=== PATIENT | male | born 1950 | race Caucasian/White ===

== ENCOUNTER 2018-12-01 11:08 | Emergency (ER) | payer MEDICARE, BC ==
[2018-12-01] MEDS ORDERED: Sodium Chloride 0.9% 10 ML Syringe FLUSH PRN (11:13)
--- NOTE | 2018-12-01 11:13 | EDM.PDOC ---
ED HPI GENERAL MEDICAL PROBLEM - General Chief Complaint: General Stated Complaint: SOB Time Seen by Provider: 12/01/18 11:10 Source of Information: Reports: Patient, Residential Records, Old Records ([facility] EMR. No paper hospital chart available.) History Limitations: Reports: No Limitations - History of Present Illness INITIAL COMMENTS - FREE TEXT/NARRATIVE: The patient was brought to the emergency room via transport vehicle from [facility] in [place] for evaluation of decompensated IDDM with Accu- Chek of greater than 600 mg percent prior to transfer to this facility. His Accu -Cheks have been under relatively poor control recently, including Accu-Cheks mostly in the 300s during the last several days by his history. He has not had anything to eat this morning with 60 units of Lantus and 35 units of NovoLog given this morning for his decompensated blood sugars. The patient denies any chest pain/pressure, heart flutter, dizziness, orthostasis, orthopnea, diaphoresis, paresthesias, recent decreased exercise tolerance, or any other anginal-type symptoms, however his overall activity level is extremely low secondary to his chronic CHF. He has noticed some weight gain and increased dependent edema during the last several days. No recent history of abdominal pain, heartburn, nausea, diarrhea, melena, gross hematochezia, or any food intolerance, including fatty foods, etc. with 2 normal bowel movements this morning. He denies any gross hematuria, colic, or other UTI symptoms. The patient also denies any recent fever, cough, wheezing, etc., however some increased dyspnea during the last couple of days. He denies any pain or discomfort. Onset: Unknown/Unsure Onset Date: 12/01/18 Onset Time: 11:00 Duration: Getting Worse Location: Reports: Other (No pain) Quality: Reports: Same as Previous Episode Improves with: Reports: None, Medication Context: Reports: Other (As above). Denies: Sick Contact, Trauma Associated Symptoms: Reports: Shortness of Breath, Weakness (Stable chronic generalized). Denies: Confusion, Chest Pain, Cough, cough w sputum, Diaphoresis , Fever/Chills, Loss of Appetite, Malaise, Nausea/Vomiting, Syncope Treatments HUMAN RESOURCES SERVICES SPECIALIST: Reports: Insulin (As above) - Related Data Allergies Allergy/AdvReac Type Severity Reaction Status Date / Time No Known Allergies Allergy Verified 12/01/18 11:34 Home Meds: Home Meds Acetaminophen 650 mg PO Q4HR PRN 12/01/18 [History] Acetaminophen [Acetaminophen Extra Strength] 1,000 mg PO ASDIRECTED PRN [History] Albuterol Sulfate [Proair Respiclick] 2 puff INH Q4HR PRN 12/01/18 [History] Amiodarone [Cordarone] 200 mg PO DAILY 12/01/18 [History] Amoxicillin 2,000 mg PO ASDIRECTED PRN 12/01/18 [History] Ascorbic Acid [Vitamin C] 1,000 mg PO DAILY 12/01/18 [History] Benzonatate 200 mg PO TID PRN 12/01/18 [History] Calcium Carbonate/Vitamin D3 [Calcium 600 + Vit D 400 Softgl] 1 tab PO DAILY [History] Cholecalciferol (Vitamin D3) [Vitamin D3] 2,000 unit PO DAILY 12/01/18 [History] Dextrose [Glucose] 4 gm PO ASDIRECTED PRN 12/01/18 [History] Docusate Sodium [Colace] 100 mg PO BID 12/01/18 [History] Eucalyptus/Menthol [Cough Drops] 1 lozenge PO Q2HR PRN 12/01/18 [History] Exenatide Microspheres [Bydureon Pen] 2 mg SQ WEEKLY 12/01/18 [History] Ferrous Sulfate 325 mg PO BID 12/01/18 [History] Finasteride 5 mg PO DAILY 12/01/18 [History] Fluticasone Propionate [Flonase Allergy Relief] 50 mcg NASBOTH 199912/01/18 [ History] Folic Acid 1 mg PO DAILY 12/01/18 [History] Gabapentin [Neurontin] 600 mg PO TID 12/01/18 [History] Insulin Aspart [NovoLOG] 25 unit SQ TID 12/01/18 [History] Insulin Glarg,Human.Rec.Analog [Lantus] 60 unit SUBCUT DAILY 12/01/18 [History] Insulin Glarg,Human.Rec.Analog [Lantus] 64 units SUBCUT 199912/01/18 [History] Isosorbide Mononitrate [Isosorbide Mononitrate ER] 120 mg PO DAILY 12/01/18 [ History] Levothyroxine Sodium [Synthroid] 75 mcg PO DAILY 12/01/18 [History] Melatonin 5 mg PO BEDTIME 12/01/18 [History] Multivitamin [Multi-Vitamin Daily] 1 tab PO DAILY 12/01/18 [History] Pantoprazole [ProTONIX] 40 mg PO BID 12/01/18 [History] Potassium Chloride 60 meq PO TID 12/01/18 [History] Psyllium Husk [Metamucil] 2 tsp PO DAILY 12/01/18 [History] Simvastatin [Zocor] 40 mg PO BEDTIME 12/01/18 [History] Spironolactone [Aldactone] 25 mg PO BID 12/01/18 [History] Torsemide 80 mg PO TID 12/01/18 [History] Venlafaxine HCl [Venlafaxine ER] 75 mg PO DAILY 12/01/18 [History] Venlafaxine HCl [Venlafaxine ER] 150 mg PO DAILY 12/01/18 [History] Vitamin B Complex 1 cap PO DAILY 12/01/18 [History] Warfarin Sodium [Coumadin] 3 mg PO ASDIRECTED 12/01/18 [History] Warfarin [Coumadin] 2.5 mg PO ASDIRECTED 12/01/18 [History] clonazePAM [Clonazepam] 1 mg PO DAILY@199912/01/18 [History] hydrALAZINE HCl [Hydralazine HCl] 100 mg PO TID 12/01/18 [History] metOLazone [Metolazone] 2.5 mg PO ASDIRECTED 12/01/18 [History] rOPINIRole [Requip] 1 mg PO QID 12/01/18 [History] Past Medical History HEENT History: Reports: Cataract, Glaucoma, Hard of Hearing, Impaired Vision, Other (See Below). Denies: Allergic Rhinitis, Otitis Media, Retinal Detachment Other HEENT History: Bilateral presbycusis with bilateral hearing aid therapy. Patient wears glasses. No diabetic retinopathy by patient history. Cardiovascular History: Reports: Automatic Implantable Cardioverter Defibrillators, Blood Clots/VTE/DVT, CAD, Cardiomyopathy, Heart Failure, High Cholesterol, Hypertension, KS, Pacemaker, Other (See Below). Denies: Afib, Aneurysm, Arrhythmia Other Cardiovascular History: Coronary artery disease with history of multiple previous nonsymptomatic MIs since his 50s with no previous PTCA/stents or bypass surgery. Chronic CHF which does require LVAD. In addition note history of pacemaker/AICD. DVT of the foot/leg at time of LVAD placement in 2008 with repeat DVT of the leg with history of secondary PE at placement of AICD in early November 2018. Recurrent syncope secondary to dehydration from diuresis therapy. History of hypertension with current chronic hypotension secondary to his heart disease/cardiomyopathy. Mixed hyperlipidemia. Respiratory History: Reports: Bronchitis, Recurrent, COPD, Intubation, Previous , PE, Pneumonia, Recurrent, Sleep Apnea, SOB, Other (See Below). Denies: Asthma , Intubation, Difficult, Pneumothorax, Pulmonary Fibrosis, TB Other Respiratory History: He does not use a CPAP. Gastrointestinal History: Reports: Chronic Constipation, Colon Polyp, GERD, Other (See Below). Denies: Celiac Disease, Cholelithiasis, Chronic Diarrhea, Diverticulosis, Fecal Incontinence, Gastritis, GI Bleed, Hepatitis, Hiatal Hernia, Inflammatory Bowel Disease, Irritable Bowel Syndrome, Jaundice, Pancreatitis, PUD Other Gastrointestinal History: Excision of 3 unknown type of polyps in the early . Genitourinary History: Reports: BPH, Chronic Renal Insuffiency, Diabetic Nephropathy, Prostate Disorder, Retention, Urinary, Other (See Below). Denies: Acute Renal Failure, Renal Calculus, STD, Urinary Incontinence, UTI, Recurrent Other Genitourinary History: Stage IV chronic renal insufficiency/diabetic nephropathy. Musculoskeletal History: Reports: Arthritis, Back Pain, Chronic, Fracture, Gout , Neck Pain, Chronic, Osteoarthritis, Other (See Below). Denies: RA, SLE Other Musculoskeletal History: Midshaft tibial fibular fracture in the early 1999sside unknown with no surgery Neurological History: Reports: Neuropathy, Diabetic, Neuropathy, Peripheral. Denies: Alzheimers Disease, Cerebral Aneurysms, Concussion, CVA, Headaches, Chronic, Head Trauma, Migraines, MS, Parkinson's, Seizure, TIA, Vertigo Psychiatric History: Reports: Addiction, Anxiety, Depression, Other (See Below) . Denies: Abuse, Victim of, ADD, ADHD, Psych Hospitalization(s), PTSD, Suicide Attempt, Suicidal Ideation Other Psychiatric History: Alcohol abuse for about 23 years as below. Endocrine/Metabolic History: Reports: Diabetes, Type II, Hypothyroidism, IDDM, Obesity/BMI 30+. Denies: Diabetes Mellitus, Type 3c, Osteopenia, Osteoporosis Hematologic History: Reports: Anemia, Blood Transfusion(s), Iron Deficiency Immunologic History: Reports: None. Denies: AIDS, HIV, SLE Oncologic (Cancer) History: Reports: Prostate, Other (See Below). Denies: Basal Cell Carcinoma, Colon, Hodgkin's Lymphoma, Leukemia, Lymphoma, Non-Hodgkin 's Lymphoma, Squamous Cell Carcinoma Other Oncologic History: Radiation treatment for prostate cancer 2008 with no TURP or prostatectomy for Dermatologic History: Reports: Venous Stasis Dermatitis. Denies: Eczema, Psoriasis - Infectious Disease History Infectious Disease History: Reports: Chicken Pox (Uncertain), Measles, Mumps. Denies: C-Difficile, Meningitis, Mononucleosis, MRSA, Pertussis (Whooping Cough) , Rheumatic Fever, Rubella, Scarlet Fever, TB, VRE - Past Surgical History Head Surgeries/Procedures: Reports: None HEENT Surgical History: Reports: Cataract Surgery, Oral Surgery, Other (See Below). Denies: Adenoidectomy, Eye Surgery, Laser Surgery, LASIK, Myringotomy w Tube(s), Naso-Sinus Surgery, Tonsillectomy Other HEENT Surgeries/Procedures: Bilateral cataract surgery in about 2014. Cardiovascular Surgical History: Reports: AICD, Pacer, Percutaneous Transluminal Angioplasty, Other (See Below). Denies: Coronary Artery Bypass, Coronary Artery Stent, Varicose Other Cardiovascular Surgeries/Procedures: AICD/pacemaker placement 2 with last placement in early November 2014. LVAD 2 initially in 2008 and then in 2014. Respiratory Surgical History: Reports: None. Denies: Thoracentesis GI Surgical History: Reports: Appendectomy, Colonoscopy, EGD, Polypectomy, Other (See Below). Denies: Cholecystectomy, Hernia, Abdominal, Hernia, Inguinal , Hernia Repair/Other Other GI Surgeries/Procedures: Appendectomy at about age 8. Colonoscopy with concomitant polypectomy 3 in the early 1999s. Previous EGD? Male Surgical History: Reports: Circumcision, Prostate Biopsy. Denies: Prostatectomy, TURBT-Transurethral Resection of Bladder Tumor, TURP- Transurethral Resection of Prostate, Vasectomy Endocrine Surgical History: Reports: None. Denies: Thyroid Biopsy Neurological Surgical History: Reports: None. Denies: C-Spine, Discectomy, Laminectomy, Lumbar Spine, Sacral Spine, Scoliosis, Spinal Fusion, Vertebroplasty Musculoskeletal Surgical History: Reports: None. Denies: Arthroscopic Procedure , Carpal Tunnel, Ganglion Cyst, Joint Replacement, ORIF, Shoulder Surgery Oncologic Surgical History: Reports: Lumpectomy, Other (See Below) Other Oncologic Surgeries/Procedures: Apparent lumpectomy of prostate cancer with subsequent radiation therapy? Dermatological Surgical History: Reports: None Social & Family History - Family History Cardiac: Reports: CAD, [place], Other (See Below) Other Cardiac Family History: Father with unknown type of heart murmur requiring valve replacement. Mother with unknown type of heart disease. Endocrine/Metabolic: Reports: Diabetes, type II, IDDM, Other (See Below). Denies: Hypothyroidism Other Endocrine/Metabolic Family History: History with AODM. Mother with IDDM. - Tobacco Use Smoking Status *Q: Former Smoker Tobacco Use Within Last Twelve Months: No Years of Tobacco use: 39 Packs/Tins Daily: 3 Packs/Tins Daily Comment: 34 packs per day with patient smoking cigarettes between ages 14 and 53. Chewing Tobacco use in his early 50s. Used Tobacco, but Quit: Yes Smoking Cessation Information Provided To Patient: No Second Hand Smoke Exposure: No Second Hand Smoke Education Provided: No - Caffeine Use Caffeine Use: Reports: Coffee (1 cup per day), Soda (12 per day). Denies: Energy Drinks, Tea, Other - Alcohol Use Alcohol Use History: Yes Days Per Week of Alcohol Use: 0 Number of Drinks Per Day: 0 Total Drinks Per Week: 0 Total Drinks Per Week Comment: Previous history of probable alcohol abuse between ages 18 and 45 with no previous alcohol treatment - Recreational Drug Use Recreational Drug Use: No Drug Use in Last 12 Months: No Recreational Drug Type: Reports: Marijuana/Hashish (Experimental marijuana use at age 20 in the ). Denies: Amphetamines (Speed), Cocaine, Heroin, Inhalants (Glues, Solvents, Aerosols), LSD (Acid), Methamphetamine, Morphine, Oxycodone Recreational Drug Route: Reports: Inhaled - Sexual History Sexual History: Reports: None - Living Situation & Occupation Living situation: Reports: Extended Care Facility ([facility]) Occupation: Disabled (In his early 50s secondary to his heart disease.) ED ROS GENERAL - Review of Systems Review Of Systems: ROS reveals no pertinent complaints other than HPI. ED EXAM, GENERAL - Physical Exam Exam: See Below Exam Limited By: No Limitations General Appearance: Alert, WD/WN, No Apparent Distress Eye Exam: Bilateral Eye: EOMI, Normal Inspection (No nystagmus. Patient wearing glasses.), PERRL Ears: Normal External Exam, Normal Canal, Normal TMs, Hearing Loss (Mild to moderate presbycusis with patient not having his hearing aides). No: Hearing Grossly Normal Nose: Normal Inspection, Normal Mucosa, No Blood Throat/Mouth: Normal Lips, Normal Oropharynx, Normal Voice, No Airway Compromise. No: Normal Teeth (Multiple missing teeth), Dysphagia, Perioral Cyanosis Head: Atraumatic, Normocephalic. No: Facial Swelling, Facial Tenderness, Sinus Tenderness Neck: Normal Inspection, Supple, Non-Tender, Full Range of Motion. No: Lymphadenopathy (L), Lymphadenopathy (R), Thyromegaly Respiratory/Chest: No Respiratory Distress, No Accessory Muscle Use, Chest Non- Tender, Rales (Mild diffuse bilateral), Other (Tubes for LVAD device noted). No : Rhonchi, Wheezing, Pleural Rub, Retractions Cardiovascular: Normal Peripheral Pulses, Regular Rate, Rhythm, No Edema, No Gallop, No JVD, No Murmur, No Rub, Other (Extremely quiet heart sounds with exam somewhat compromised by LVAD sounds). No: Gallop/S3, Gallop/S4, Extra Beats, Friction Rub Peripheral Pulses: 0: Dorsalis Pedis (L), Dorsalis Pedis (R), 2+: Radial (L), Radial (R) GI/Abdominal: Normal Bowel Sounds, Soft, Non-Tender, No Organomegaly, No Distention, No Abnormal Bruit, No Mass, Pelvis Stable, Other (Obese. Multiple mild ecchymosis side secondary to insulin injections.). No: Guarding (Male) Exam: Deferred Rectal (Males) Exam: Deferred Back Exam: Normal Inspection, Full Range of Motion. No: CVA Tenderness (L), CVA Tenderness (R), Muscle Spasm Extremities: Normal Range of Motion, Non-Tender, Normal Capillary Refill, Pedal Edema (+1 bilateral pitting pedal/pretibial edema). No: No Pedal Edema, Karyn' s Sign Neurological: Alert, Oriented, CN II-XII Intact, Normal Cognition, Normal Gait, Normal Reflexes (Negative Babinski's), No Motor/Sensory Deficits Psychiatric: Normal Affect, Normal Mood Skin Exam: Warm, Dry, Intact, Normal Color, Ecchymosis (As above), Other ( Moderate venous stasis dermatitis of the anterior tibial regions bilaterally.). No: Diaphoretic, Lymphangitis, Wound/Incision Lymphatic: No Adenopathy EKG INTERPRETATION EKG Date: 12/01/18 Time: 12:14 Rhythm: Other (100% paced) Rate (Beats/Min): 80 Junction: Normal (Left cardiac axis) P-Wave: Absent (Paced rhythm) QRS: Wide (Secondary to paced rhythm) ST-T: Normal QT: Normal ME/PQ Interval: Paced rhythm Comparison: NA - No Prior EKG EKG Interpretation Comments: No acute ischemic changes with 100% paced rhythm Course - Vital Signs Last Recorded V/S: Last Vital Signs Temp 36.4 C 12/01/18 13:15 Pulse 80 12/01/18 15:16 Resp 16 12/01/18 15:16 BP 102/88 12/01/18 15:16 Pulse Ox 99 12/01/18 15:16 Vital Signs - 24 hr 12/01/18 12/01/18 12/01/18 11:13 13:15 13:47 Temperature [ 36.4 C Temporal] Pulse, 60 80 Peripheral [ Right Pulse Oximetry] Respiratory 18 20 Rate Blood Pressure 117/85 109/93 H [Left Upper Arm ] O2 Sat by Pulse 100 99 Oximetry O2 Sat by Pulse 100 Oximetry [ Nasal Cannula] 12/01/18 12/01/18 12/01/18 14:02 14:16 14:31 Temperature [ Temporal] Pulse, 80 89 81 Peripheral [ Right Pulse Oximetry] Respiratory 20 20 20 Rate Blood Pressure 97/76 102/89 114/78 [Left Upper Arm ] O2 Sat by Pulse 99 97 97 Oximetry O2 Sat by Pulse Oximetry [ Nasal Cannula] 12/01/18 12/01/18 12/01/18 14:48 15:01 15:16 Temperature [ Temporal] Pulse, 80 80 80 Peripheral [ Right Pulse Oximetry] Respiratory 14 12 16 Rate Blood Pressure 110/94 H 106/90 102/88 [Left Upper Arm ] O2 Sat by Pulse 99 98 99 Oximetry O2 Sat by Pulse Oximetry [ Nasal Cannula] - Orders/Labs/Meds Orders: Active Orders 24 hr Category Date Time Status Cardiac Monitoring [RC] CONTINUOUS Care 12/01/18 11:13 Active Communication Order [RC] ROUTINE Care 12/01/18 11:13 Active EKG Documentation Completion [RC] ASDIRECTED Care 12/01/18 12:03 Active Oxygen Therapy, ED [RC] CONTINUOUS Care 12/01/18 11:13 Active Peripheral IV Care [RC] . DIRECTED Care 12/01/18 11:14 Active Pulse Oximetry [RC] CONTINUOUS Care 12/01/18 11:13 Active Up With Assistance [RC] ASDIRECTED Care 12/01/18 11:13 Active Chest 1V Frontal [CR] Stat Exams 12/01/18 11:13 Taken CULTURE URINE [RM] Routine Lab 12/01/18 12:30 Received Obtain Past Medical Record [OM.PC] Stat Oth 12/01/18 11:13 Active Peripheral IV Insertion Adult [OM.PC] Stat Oth 12/01/18 11:13 Ordered Resuscitation Status Routine Resus Stat 12/01/18 11:13 Ordered Labs: Laboratory Tests 12/01/18 12/01/18 12/01/18 Range/Units 11:13 11:13 11:30 WBC 10.7 H (4.0-10.2) K/uL RBC 3.47 L (4.33-5.41) M/uL Hgb 12.2 L (13.1-16.8) g/dL Hct 38.3 L (39.0-49.0) % MCV 110.4 H (84.0-98.0) fL MCH 35.2 H (28.2-33.3) pg MCHC 31.9 (31.7-36.0) g/dL RDW 17.5 H (11.2-14.1) % Plt Count 141 L (150-350) K/uL Neut % (Auto) 85.8 H (45.0-80.0) % Lymph % (Auto) 5.3 L (10.0-50.0) % Valley % (Auto) 7.9 (2.0-14.0) % Eos % (Auto) 0.7 (0.0-5.0) % Baso % (Auto) 0.3 (0.0-2.0) % Neut # (Auto) 9.20 H (1.40-7.00) K/uL Lymph # (Auto) 0.57 (0.50-3.50) K/uL Valley # (Auto) 0.85 (0.00-1.00) K/uL Eos # (Auto) 0.07 (0.00-0.50) K/uL Baso # (Auto) 0.03 (0.00-0.20) K/uL PT (9.5-12.0) SEC INR APTT (21.0-31.3) SEC Sodium 133 L (136-145) mmol/L Potassium 5.5 H (3.5-5.1) mmol/L Chloride 95 L (98-107) mmol/L Carbon Dioxide 29.1 (21.0-32.0) mmol/L BUN 41 H (7-18) mg/dL Creatinine 2.15 H (0.51-1.17) mg/dL Est Cr Clr Drug Dosing TNP Estimated GFR (MDRD) 31 mL/min Glucose 386 H (74-106) mg/dL Lactic Acid 2.6 H (0.4-2.0) mmol/L Calcium 8.5 (8.5-10.1) mg/dL Magnesium 2.2 (1.8-2.4) mg/dL Total Bilirubin 0.9 (0.2-1.0) mg/dL AST 47 H (15-37) U/L ALT 26 (12-78) U/L Alkaline Phosphatase 72 (46-116) IU/L Creatine Kinase 131 (26-308) U/L Creatine Kinase Index 7.1 H (0.0-2.5) % CK-MB (CK-2) 9.30 H* (0.00-3.60) ng/mL Troponin I 1.306 H* (0.000-0.056) ng/mL NT-Pro-B Natriuret Pep 2124 H (0-125) pg/mL Total Protein 7.9 (6.4-8.2) g/dL Albumin 3.7 (3.4-5.0) g/dL TSH, Ultra Sensitive 3.970 H (0.358-3.740) mIU/mL Specimen Type Urine Color Urine Appearance Urine pH (5.0-9.0) Ur Specific Victoria (1.005-1.030) Urine Protein (NEGATIVE) mg/dL Urine Glucose (UA) (NEGATIVE) mg/dL Urine Ketones (NEGATIVE) mg/dL Urine Occult Blood (NEGATIVE) Urine Nitrite (NEGATIVE) Urine Bilirubin (NEGATIVE) Urine Urobilinogen (0.2-1.0) E.U./dL Ur Leukocyte Esterase (NEGATIVE) Urine RBC /HPF Urine WBC /HPF Ur Epithelial Cells /LPF Urine Bacteria (NONE TO FEW) /HPF 12/01/18 12/01/18 Range/Units 11:30 12:30 WBC (4.0-10.2) K/uL RBC (4.33-5.41) M/uL Hgb (13.1-16.8) g/dL Hct (39.0-49.0) % MCV (84.0-98.0) fL MCH (28.2-33.3) pg MCHC (31.7-36.0) g/dL RDW (11.2-14.1) % Plt Count (150-350) K/uL Neut % (Auto) (45.0-80.0) % Lymph % (Auto) (10.0-50.0) % Valley % (Auto) (2.0-14.0) % Eos % (Auto) (0.0-5.0) % Baso % (Auto) (0.0-2.0) % Neut # (Auto) (1.40-7.00) K/uL Lymph # (Auto) (0.50-3.50) K/uL Valley # (Auto) (0.00-1.00) K/uL Eos # (Auto) (0.00-0.50) K/uL Baso # (Auto) (0.00-0.20) K/uL PT 22.5 H D (9.5-12.0) SEC INR 2.1 APTT 35.1 H (21.0-31.3) SEC Sodium (136-145) mmol/L Potassium (3.5-5.1) mmol/L Chloride (98-107) mmol/L Carbon Dioxide (21.0-32.0) mmol/L BUN (7-18) mg/dL Creatinine (0.51-1.17) mg/dL Est Cr Clr Drug Dosing Estimated GFR (MDRD) mL/min Glucose (74-106) mg/dL Lactic Acid (0.4-2.0) mmol/L Calcium (8.5-10.1) mg/dL Magnesium (1.8-2.4) mg/dL Total Bilirubin (0.2-1.0) mg/dL AST (15-37) U/L ALT (12-78) U/L Alkaline Phosphatase (46-116) IU/L Creatine Kinase (26-308) U/L Creatine Kinase Index (0.0-2.5) % CK-MB (CK-2) (0.00-3.60) ng/mL Troponin I (0.000-0.056) ng/mL NT-Pro-B Natriuret Pep (0-125) pg/mL Total Protein (6.4-8.2) g/dL Albumin (3.4-5.0) g/dL TSH, Ultra Sensitive (0.358-3.740) mIU/mL Specimen Type Urincc Urine Color Yellow Urine Appearance Clear Urine pH 5.0 (5.0-9.0) Ur Specific Victoria 1.010 (1.005-1.030) Urine Protein Negative (NEGATIVE) mg/dL Urine Glucose (UA) 500 H (NEGATIVE) mg/dL Urine Ketones Negative (NEGATIVE) mg/dL Urine Occult Blood Negative (NEGATIVE) Urine Nitrite Negative (NEGATIVE) Urine Bilirubin Negative (NEGATIVE) Urine Urobilinogen 0.2 (0.2-1.0) E.U./dL Ur Leukocyte Esterase Negative (NEGATIVE) Urine RBC 0-5 /HPF Urine WBC Not seen /HPF Ur Epithelial Cells Rare /LPF Urine Bacteria Rare (NONE TO FEW) /HPF Meds: Medications Discontinued Medications Generic Name Dose Route Start Last Admin Trade Name Freq PRN Reason Stop Dose Admin Furosemide 60 mg 12/01/18 12:44 12/01/18 12:50 Lasix IVPUSH 12/01/18 12:45 60 mg NOW ONE Administration Sodium Chloride 10 ml 12/01/18 11:13 12/01/18 12:50 Saline Flush FLUSH 10 ml ASDIRECTED PRN Administration Keep Vein Open - Radiology Interpretation Free Text/Narrative:: administrative executive shows 100% paced rhythm with heart rate in the 80s with no ectopy or extrasystoles. Chest x-ray, portable, shows evidence of severe cardiomegaly with moderate CHF but no pleural effusions, pneumothorax, etc. Pacemaker/AICD and LVAD device noted. Moderate COPD changes with no pulmonary infiltrates Departure - Departure Time of Disposition: 17:05 Disposition: DC/Tfer to Acute Hospital 02 Condition: Fair Clinical Impression: Elevated lactic acid level, IDDM (insulin dependent diabetes mellitus), Renal insufficiency, Macrocytic anemia, Peptic reflux disease, Mixed anxiety depressive disorder, Comfort measures only status, Hypothyroidism (acquired) Acute KS Qualifiers: Myocardial infarction type: unspecified Involved coronary artery: unspecified coronary artery Qualified Code(s): I21.9 - Acute myocardial infarction, unspecified CHF (congestive heart failure), NYHA class IV Qualifiers: Congestive heart failure type: systolic Congestive heart failure chronicity: acute on chronic Qualified Code(s): I50.23 - Acute on chronic systolic ( congestive) heart failure Hyperlipidemia Qualifiers: Hyperlipidemia type: mixed hyperlipidemia Qualified Code(s): E78.2 - Mixed hyperlipidemia COPD (chronic obstructive pulmonary disease) Qualifiers: COPD type: emphysema Emphysema type: panlobular Qualified Code(s): J43.1 - Panlobular emphysema Hypertension Qualifiers: Hypertension type: essential hypertension Qualified Code(s): I10 - Essential ( primary) hypertension - Discharge Information *PRESCRIPTION DRUG MONITORING PROGRAM REVIEWED*: Not Applicable *COPY OF PRESCRIPTION DRUG MONITORING REPORT IN PATIENT LOLY: Not Applicable Referrals: Manasa Chaudhari PA [Primary Care Provider] - Forms: ED Department Discharge, Interfacility Transfer EMTALA - Problem List & Annotations (1) Acute KS SNOMED Code(s): 76260663 Code(s): I21.9 - ACUTE MYOCARDIAL INFARCTION, UNSPECIFIED Status: Acute Priority: High Onset Date: 12/01/18 Annotation/Comment:: Long history of recurrent MIs with secondary disability as above. Previous MIs were always nonsymptomatic with no chest pain, etc., including with this episode. Note recent AICD replacement in [place] about 2 weeks ago, however this does not explain patient's current cardiac enzyme elevations. Chest pain protocol was not initiated on patient's arrival secondary to absence of anginal type symptoms. Note that his INR is therapeutic at this time at 2.1 with this therapy secondary to recurrent DVTs with apparent recent PE as above. Initial telephone consultation with the LVAD clinic in [facility], at 11:30 a.m., updating her about initial phases of emergency room evaluation. Subsequent telephone consultation with Juan Manuel from the same facility/clinic at 12: 45 PM, who will consult with their it operations analyst concerning further treatment plan. Multiple additional telephone consultations with Juan Manuel at 13:35, 13:55, and 13:18 hours with no return call from their it operations analyst Dr. Chicas to this point. Telephone number for the LVAD coordinator is [phone], option 4. Subsequent telephone consultation with patient coordination at [facility], telephone #[phone], at 14:20 hours and 14:[address] Ponce the commission associate at that facility did call back at 15:05 hours per the request of Dr. Chicas. They are in agreement with transfer of the patient to [place] with no additional aspirin, Brilinta, etc. at this time secondary to his Coumadin therapy. They did also do not have any beds available in a timely manner in their facility with patient also wishing to go to [place] rather than [place]. Subsequent telephone consultation at 15:[address] David , the hospitalist at [facility] in [place], who does accept the patient for direct admission and further treatment, cardiology consultation, etc. No further treatment recommendations given. Ambulance transfer with hand stripper accompaniment. Note that I did update the patient's sister, Cherry, by telephone at 14:45 hours concerning the patient's treatment plan. Note patient' s NO CODE status. Vital signs, etc. stable at time of transfer. Qualifiers: Myocardial infarction type: unspecified Involved coronary artery: unspecified coronary artery Qualified Code(s): I21.9 - Acute myocardial infarction, unspecified (2) CHF (congestive heart failure), NYHA class IV SNOMED Code(s): 883179471, 776968057 Code(s): I50.9 - HEART FAILURE, UNSPECIFIED Status: Acute Priority: High Onset Date: ~12/01/18 Annotation/Comment:: Recent increased dependent edema and weight gain during the last few days as above. Lasix 60 mg IV given in this facility. Note secondary hyponatremia and LFTs elevation from his CHF. Moderate CHF by exam, chest x-ray, and BNP as above. Qualifiers: Congestive heart failure type: systolic Congestive heart failure chronicity : acute on chronic Qualified Code(s): I50.23 - Acute on chronic systolic ( congestive) heart failure (3) COPD (chronic obstructive pulmonary disease) SNOMED Code(s): 14847048 Code(s): J44.9 - CHRONIC OBSTRUCTIVE PULMONARY DISEASE, UNSPECIFIED Status : Chronic Priority: Medium Annotation/Comment:: No recent fever, bronchitic type symptoms, etc.. Note history of sleep apnea with patient not using his CPAP. Qualifiers: COPD type: emphysema Emphysema type: panlobular Qualified Code(s): J43.1 - Panlobular emphysema (4) Elevated lactic acid level SNOMED Code(s): 9226105 Code(s): R79.89 - OTHER SPECIFIED ABNORMAL FINDINGS OF BLOOD CHEMISTRY Status: Acute Priority: High Onset Date: 12/01/18 Annotation/Comment:: No recent fever, or local signs of infection with only mild WBC elevation and a left shift likely secondary to stress reaction. Repeat lactic acid level recommended in about 3 hours. (5) Hyperlipidemia SNOMED Code(s): 66919804 Code(s): E78.5 - HYPERLIPIDEMIA, UNSPECIFIED Status: Chronic Priority: Medium Annotation/Comment:: Continue to observe closely by accepting providers. Qualifiers: Hyperlipidemia type: mixed hyperlipidemia Qualified Code(s): E78.2 - Mixed hyperlipidemia (6) IDDM (insulin dependent diabetes mellitus) SNOMED Code(s): 55674408 Code(s): E11.9 - TYPE 2 DIABETES MELLITUS WITHOUT COMPLICATIONS; Z79.4 - APPRAISER LAND (CURRENT) USE OF INSULIN Status: Acute Priority: High Annotation /Comment:: Patient actually sent to this facility for hyperglycemia, however venous blood sugar today in the 300s similar to his Accu-Cheks in recent weeks. Continue to observe closely by his accepting providers. Note history of diabetic nephropathy and neuropathy with no known diabetic retinopathy. (7) Macrocytic anemia SNOMED Code(s): 91759641 Code(s): D53.9 - NUTRITIONAL ANEMIA, UNSPECIFIED Status: Acute Priority: Medium Onset Date: 12/01/18 Annotation/Comment:: Consider vitamin B-12, folic acid level, etc. (8) Mixed anxiety depressive disorder SNOMED Code(s): 975255352 Code(s): F41.8 - OTHER SPECIFIED ANXIETY DISORDERS Status: Chronic Priority: Medium Annotation/Comment:: Stable by history and currently under medical therapy. Note previous history of alcohol abuse. (9) Peptic reflux disease SNOMED Code(s): 944943243 Code(s): K21.9 - GASTRO-ESOPHAGEAL REFLUX DISEASE WITHOUT ESOPHAGITIS Status: Chronic Priority: Medium Annotation/Comment:: Stable by history. (10) Renal insufficiency SNOMED Code(s): 927218657, 408128938 Code(s): N28.9 - DISORDER OF KIDNEY AND URETER, UNSPECIFIED Status: Chronic Priority: Medium Annotation/Comment:: Diabetic nephropathy as above with stable renal function based on review of blood work from our records.. (11) Hypertension SNOMED Code(s): 53820333 Code(s): I10 - ESSENTIAL (PRIMARY) HYPERTENSION Status: Acute Priority: High Annotation/Comment:: Note history of hypertension, however chronic hypotension secondary to his heart disease with systolic blood pressures in the 90s. Qualifiers: Hypertension type: essential hypertension Qualified Code(s): I10 - Essential (primary) hypertension (12) Comfort measures only status SNOMED Code(s): 11579624822136 Code(s): Z51.5 - ENCOUNTER FOR PALLIATIVE CARE Status: Chronic Priority: High Annotation/Comment:: CODE STATUS was confirmed during this evaluation. Comfort/palliative care only, however patient does reluctantly agree to hospital transfer. (13) Hypothyroidism (acquired) SNOMED Code(s): 125293807 Code(s): E03.9 - HYPOTHYROIDISM, UNSPECIFIED Status: Chronic Priority: Medium Annotation/Comment:: TSH mildly elevated today. Consider medication adjustments by accepting providers. - Problem List Review Problem List Initiated/Reviewed/Updated: Yes - My Orders Last 24 Hours: My Active Orders 12/01/18 11:13 Cardiac Monitoring [RC] CONTINUOUS Communication Order [RC] ROUTINE Oxygen Therapy, ED [RC] CONTINUOUS Pulse Oximetry [RC] CONTINUOUS Up With Assistance [RC] ASDIRECTED Chest 1V Frontal [CR] Stat Obtain Past Medical Record [OM.PC] Stat Peripheral IV Insertion Adult [OM.PC] Stat Resuscitation Status Routine 12/01/18 11:14 Peripheral IV Care [RC] . DIRECTED 12/01/18 12:03 EKG Documentation Completion [RC] ASDIRECTED 12/01/18 12:30 CULTURE URINE [RM] Routine - Assessment/Plan Last 24 Hours: My Active Orders 12/01/18 11:13 Cardiac Monitoring [RC] CONTINUOUS Communication Order [RC] ROUTINE Oxygen Therapy, ED [RC] CONTINUOUS Pulse Oximetry [RC] CONTINUOUS Up With Assistance [RC] ASDIRECTED Chest 1V Frontal [CR] Stat Obtain Past Medical Record [OM.PC] Stat Peripheral IV Insertion Adult [OM.PC] Stat Resuscitation Status Routine 12/01/18 11:14 Peripheral IV Care [RC] . DIRECTED 12/01/18 12:03 EKG Documentation Completion [RC] ASDIRECTED 12/01/18 12:30 CULTURE URINE [RM] Routine Assessment:: As above Plan: As above. Extensive precautions were given to the patient, who is in agreement with the treatment plan.
[2018-12-01 12:00] LABS: CHLORIDE,CL 95 mmol/L (98-107); SODIUM,NA 133 mmol/L (136-145)
[2018-12-01] MEDS ORDERED: Furosemide 40 MG/4 ML VIAL IVPUSH ONE (12:44)
== END 2018-12-01 17:05 ==
LOC: LL.ED 11:08
DX: I21.9 Acute myocardial infarction, unspecified (principal); I13.0 Hypertensive heart and chronic kidney disease with heart failure and stage 1 through stage 4 chronic kidney disease, or unspecified chronic kidney disease; E11.22 Type 2 diabetes mellitus with diabetic chronic kidney disease; N18.4 Chronic kidney disease, stage 4 (severe); I50.23 Acute on chronic systolic (congestive) heart failure; D63.1 Anemia in chronic kidney disease; E78.2 Mixed hyperlipidemia; J43.1 Panlobular emphysema; E03.9 Hypothyroidism, unspecified; R74.0 Nonspecific elevation of levels of transaminase and lactic acid dehydrogenase [LDH]; F41.8 Other specified anxiety disorders; K21.9 Gastro-esophageal reflux disease without esophagitis; E11.40 Type 2 diabetes mellitus with diabetic neuropathy, unspecified; I25.10 Atherosclerotic heart disease of native coronary artery without angina pectoris; Z79.899 Other long term (current) drug therapy; Z79.4 Long term (current) use of insulin
CPT/HCPCS: 36415; 71045; 80053; 81001; 82550; 82553; 83605; 83735; 83880; 84443; 84484; 85025; 85610; 85730; 87086; 93005; 96374; 99285-25; J1940

== ENCOUNTER 2019-02-13 13:25 | Emergency (ER) | payer MEDICARE, BC ==
[2019-02-13] MEDS ORDERED: Sodium Chloride 0.9% 10 ML Syringe FLUSH PRN (13:46)
[2019-02-13] MEDS ORDERED: Furosemide 40 MG/4 ML VIAL IVPUSH ONE (13:46)
--- NOTE | 2019-02-13 13:58 | EDM.PDOC ---
ED HPI GENERAL MEDICAL PROBLEM - General Chief Complaint: General Stated Complaint: SOB Time Seen by Provider: 02/13/19 13:35 Source of Information: Reports: Patient History Limitations: Reports: No Limitations - History of Present Illness INITIAL COMMENTS - FREE TEXT/NARRATIVE: Patient is a 68-year-old man who is a is in the [place] [facility] was brought in by the nurses secondary to shortness of breath started this morning patient admits to gaining approximately 6 pounds in the last 3 days otherwise is doing well. Onset: Today Duration: Hour(s):, Getting Worse Location: Reports: Generalized Improves with: Reports: Immobilization Worsens with: Reports: Movement Associated Symptoms: Reports: Weakness - Related Data Allergies Allergy/AdvReac Type Severity Reaction Status Date / Time No Known Allergies Allergy Verified 02/13/19 15:17 Home Meds: Home Meds Acetaminophen 650 mg PO Q4HR PRN 12/01/18 [History] Acetaminophen [Acetaminophen Extra Strength] 1,000 mg PO ASDIRECTED PRN [History] Amiodarone [Cordarone] 200 mg PO DAILY 12/01/18 [History] Amoxicillin 2,000 mg PO ASDIRECTED PRN 12/01/18 [History] Benzonatate 200 mg PO TID PRN 12/01/18 [History] Calcium Carbonate/Vitamin D3 [Calcium 600 + Vit D 400 Softgl] 1 tab PO DAILY [History] Cholecalciferol (Vitamin D3) [Vitamin D3] 2,000 unit PO DAILY 12/01/18 [History] Dextrose [Glucose] 4 gm PO ASDIRECTED PRN 12/01/18 [History] Docusate Sodium [Colace] 100 mg PO BID 12/01/18 [History] Eucalyptus/Menthol [Cough Drops] 1 lozenge PO Q2HR PRN 12/01/18 [History] Exenatide Microspheres [Bydureon Pen] 2 mg SQ WEEKLY 12/01/18 [History] Ferrous Sulfate 325 mg PO BID 12/01/18 [History] Finasteride 5 mg PO DAILY 12/01/18 [History] Fluticasone Propionate [Flonase Allergy Relief] 50 mcg NASBOTH 2000 12/01/18 [ History] Folic Acid 1 mg PO DAILY 12/01/18 [History] Gabapentin [Neurontin] 600 mg PO TID 12/01/18 [History] Insulin Aspart [NovoLOG] 25 unit SQ TID 12/01/18 [History] Insulin Glarg,Human.Rec.Analog [Lantus] 60 unit SUBCUT DAILY 12/01/18 [History] Insulin Glarg,Human.Rec.Analog [Lantus] 64 units SUBCUT 199912/01/18 [History] Isosorbide Mononitrate [Isosorbide Mononitrate ER] 120 mg PO DAILY 12/01/18 [ History] Levothyroxine Sodium [Synthroid] 75 mcg PO DAILY 12/01/18 [History] Melatonin 5 mg PO BEDTIME 12/01/18 [History] Multivitamin [Multi-Vitamin Daily] 1 tab PO DAILY 12/01/18 [History] Pantoprazole [ProTONIX] 40 mg PO BID 12/01/18 [History] Potassium Chloride 60 meq PO TID 12/01/18 [History] Simvastatin [Zocor] 40 mg PO BEDTIME 12/01/18 [History] Spironolactone [Aldactone] 25 mg PO BID 12/01/18 [History] Torsemide 80 mg PO TID 12/01/18 [History] Venlafaxine HCl [Venlafaxine ER] 75 mg PO DAILY 12/01/18 [History] Venlafaxine HCl [Venlafaxine ER] 150 mg PO DAILY 12/01/18 [History] Vitamin B Complex 1 cap PO DAILY 12/01/18 [History] Warfarin [Coumadin] 2.5 mg PO ASDIRECTED 12/01/18 [History] clonazePAM [Clonazepam] 1 mg PO DAILY@199912/01/18 [History] hydrALAZINE HCl [Hydralazine HCl] 100 mg PO TID 12/01/18 [History] metOLazone [Metolazone] 2.5 mg PO ASDIRECTED 12/01/18 [History] rOPINIRole [Requip] 1 mg PO QID 12/01/18 [History] Albuterol [Proventil HFA] 2 puff INH Q4HR PRN 02/13/19 [History] Ascorbic Acid [Vitamin C] 1,000 mg PO 0800 02/13/19 [History] Cholecalciferol (Vitamin D3) [Vitamin D3] 2,000 unit PO DAILY 02/13/19 [History] Dextrose [Glucose] 1 tab PO ASDIRECTED PRN 02/13/19 [History] Exenatide Microspheres [Bydureon Pen] 2 mg SUBCUT WEEKLY 02/13/19 [History] Methyl Salicylate/Menthol [Salonpas Patch] 1 patch TOP TID PRN 02/13/19 [History ] Potassium Chloride [Klor-Con M20] 40 meq PO TID 02/13/19 [History] Potassium Chloride [Klor-Con M20] 40 meq PO WEEKLY 02/13/19 [History] Pravastatin [Pravachol] 40 mg PO 199902/13/19 [History] Psyllium Husk [Metamucil] 2 tsp PO DAILY 02/13/19 [History] metOLazone [Metolazone] 2.5 tab PO ASDIRECTED 02/13/19 [History] Past Medical History HEENT History: Reports: Cataract, Glaucoma, Hard of Hearing, Impaired Vision, Other (See Below) Other HEENT History: Bilateral presbycusis with bilateral hearing aid therapy. Patient wears glasses. No diabetic retinopathy by patient history. Cardiovascular History: Reports: Automatic Implantable Cardioverter Defibrillators, Blood Clots/VTE/DVT, CAD, Cardiomyopathy, Heart Failure, High Cholesterol, Hypertension, NE, Pacemaker, Other (See Below) Other Cardiovascular History: Coronary artery disease with history of multiple previous nonsymptomatic MIs since his 50s with no previous PTCA/stents or bypass surgery. Chronic CHF which does require LVAD. In addition note history of pacemaker/AICD. DVT of the foot/leg at time of LVAD placement in 2008 with repeat DVT of the leg with history of secondary PE at placement of AICD in early November 2018. Recurrent syncope secondary to dehydration from diuresis therapy. History of hypertension with current chronic hypotension secondary to his heart disease/cardiomyopathy. Mixed hyperlipidemia. Respiratory History: Reports: Bronchitis, Recurrent, COPD, Intubation, Previous , PE, Pneumonia, Recurrent, Sleep Apnea, SOB, Other (See Below) Other Respiratory History: He does not use a CPAP. Gastrointestinal History: Reports: Chronic Constipation, Colon Polyp, GERD, Other (See Below) Other Gastrointestinal History: Excision of 3 unknown type of polyps in the early . Genitourinary History: Reports: BPH, Chronic Renal Insuffiency, Diabetic Nephropathy, Prostate Disorder, Retention, Urinary, Other (See Below) Other Genitourinary History: Stage IV chronic renal insufficiency/diabetic nephropathy. Musculoskeletal History: Reports: Arthritis, Back Pain, Chronic, Fracture, Gout , Neck Pain, Chronic, Osteoarthritis, Other (See Below) Other Musculoskeletal History: Midshaft tibial fibular fracture in the early ide unknown with no surgery Neurological History: Reports: Neuropathy, Diabetic, Neuropathy, Peripheral Psychiatric History: Reports: Addiction, Anxiety, Depression, Other (See Below) Other Psychiatric History: Alcohol abuse for about 23 years as below. Endocrine/Metabolic History: Reports: Diabetes, Type II, Hypothyroidism, IDDM, Obesity/BMI 30+ Hematologic History: Reports: Anemia, Blood Transfusion(s), Iron Deficiency Immunologic History: Reports: None Oncologic (Cancer) History: Reports: Prostate, Other (See Below) Other Oncologic History: Radiation treatment for prostate cancer 2008 with no TURP or prostatectomy for Dermatologic History: Reports: Venous Stasis Dermatitis - Infectious Disease History Infectious Disease History: Reports: Chicken Pox, Measles, Mumps - Past Surgical History Head Surgeries/Procedures: Reports: None HEENT Surgical History: Reports: Cataract Surgery, Oral Surgery, Other (See Below) Other HEENT Surgeries/Procedures: Bilateral cataract surgery in about 2014. Cardiovascular Surgical History: Reports: AICD, Pacer, Percutaneous Transluminal Angioplasty, Other (See Below) Other Cardiovascular Surgeries/Procedures: AICD/pacemaker placement 2 with last placement in early November 2014. LVAD 2 initially in 2008 and then in 2014. Respiratory Surgical History: Reports: None GI Surgical History: Reports: Appendectomy, Colonoscopy, EGD, Polypectomy, Other (See Below) Other GI Surgeries/Procedures: Appendectomy at about age 8. Colonoscopy with concomitant polypectomy 3 in the early . Previous EGD? Male Surgical History: Reports: Circumcision, Prostate Biopsy Endocrine Surgical History: Reports: None Neurological Surgical History: Reports: None Musculoskeletal Surgical History: Reports: None Oncologic Surgical History: Reports: Lumpectomy, Other (See Below) Other Oncologic Surgeries/Procedures: Apparent lumpectomy of prostate cancer with subsequent radiation therapy? Dermatological Surgical History: Reports: None Social & Family History - Family History Cardiac: Reports: CAD, NE, Other (See Below) Other Cardiac Family History: Father with unknown type of heart murmur requiring valve replacement. Mother with unknown type of heart disease. Endocrine/Metabolic: Reports: Diabetes, type II, IDDM, Other (See Below) Other Endocrine/Metabolic Family History: History with AODM. Mother with IDDM. - Tobacco Use Smoking Status *Q: Former Smoker Used Tobacco, but Quit: Yes Month/Year Tobacco Last Used: 07/2002 - Caffeine Use Caffeine Use: Reports: Coffee, Soda - Recreational Drug Use Recreational Drug Use: No - Sexual History Sexual History: Reports: None - Living Situation & Occupation Living situation: Reports: Extended Care Facility [facility]) Occupation: Disabled (In his early 50s secondary to his heart disease.) ED ROS GENERAL - Review of Systems Review Of Systems: See Below Constitutional: Reports: Weakness, Fatigue HEENT: Reports: No Symptoms Respiratory: Reports: Shortness of Breath Cardiovascular: Reports: Blood Pressure Problem (Hypertension), Dyspnea on Exertion, Lightheadedness Endocrine: Reports: No Symptoms GI/Abdominal: Reports: No Symptoms : Reports: No Symptoms Musculoskeletal: Reports: No Symptoms Skin: Reports: No Symptoms Neurological: Reports: No Symptoms Psychiatric: Reports: Anxiety, Depression Immunologic: Reports: No Symptoms Free Text/Narrative/Comment: Patient has a left ventricular assist device in place ED EXAM, GENERAL - Physical Exam Exam: See Below Exam Limited By: No Limitations General Appearance: Alert, WD/WN, Mild Distress, Obese Eye Exam: Bilateral Eye: EOMI, PERRL Ears: Normal External Exam, Normal Canal, Hearing Grossly Normal, Normal TMs Ear Exam: Bilateral Ear: Auricle Normal, Canal Normal, TM normal Nose: Normal Inspection, Normal Mucosa, No Blood Throat/Mouth: Normal Inspection, Normal Lips, Normal Teeth, Normal Gums, Normal Oropharynx, Normal Voice, No Airway Compromise Head: Atraumatic, Normocephalic Neck: Normal Inspection, Supple, Non-Tender, Full Range of Motion Respiratory/Chest: Respiratory Distress, Decreased Breath Sounds Cardiovascular: Regular Rate, Rhythm GI/Abdominal: Normal Bowel Sounds, Soft, Non-Tender, No Organomegaly, No Distention, No Abnormal Bruit, No Mass (Male) Exam: Deferred Rectal (Males) Exam: Deferred Back Exam: Normal Inspection Extremities: Pedal Edema Neurological: Alert, Oriented, CN II-XII Intact, Normal Cognition, Normal Gait, Normal Reflexes, No Motor/Sensory Deficits Psychiatric: Anxious, Depressed Mood Skin Exam: Warm, Dry, Intact, Normal Color, No Rash Lymphatic: No Adenopathy Course - Vital Signs Last Recorded V/S: Last Vital Signs Temp 97.9 F 02/13/19 13:25 Pulse 77 02/13/19 13:45 Resp 15 02/13/19 13:45 BP 84/66 L 02/13/19 13:45 Pulse Ox 93 L 02/13/19 13:45 - Orders/Labs/Meds Orders: Active Orders 24 hr Category Date Time Status Accu Check [Blood Glucose Check, Bedside] [RC] ONETIME Care 02/13/19 14:23 Active Cardiac Monitoring [RC] . DIRECTED Care 02/13/19 14:10 Active EKG Documentation Completion [RC] ASDIRECTED Care 02/13/19 13:46 Active CXR [Chest 2V] [CR] Stat Exams 02/13/19 13:43 Taken Sodium Chloride 0.9% [Saline Flush] Med 02/13/19 13:46 Active 10 ml FLUSH ASDIRECTED PRN Saline Lock Insert [OM.PC] Stat Oth 02/13/19 13:44 Ordered Medication Orders Sodium Chloride (Saline Flush) 10 ml FLUSH ASDIRECTED PRN PRN Reason: Keep Vein Open Last Admin: 02/13/19 14:07 Dose: 10 ml Labs: Laboratory Tests 02/13/19 02/13/19 02/13/19 Range/Units 14:00 14:00 14:30 WBC 9.9 (4.0-10.2) K/uL RBC 3.60 L (4.33-5.41) M/uL Hgb 12.6 L (13.1-16.8) g/dL Hct 37.1 L (39.0-49.0) % MCV 103.1 H D (84.0-98.0) fL MCH 35.0 H (28.2-33.3) pg MCHC 34.0 (31.7-36.0) g/dL RDW 17.1 H (11.2-14.1) % Plt Count 149 L (150-350) K/uL Neut % (Auto) 82.9 H (45.0-80.0) % Lymph % (Auto) 5.2 L (10.0-50.0) % [place] % (Auto) 10.5 (2.0-14.0) % Eos % (Auto) 1.2 (0.0-5.0) % Baso % (Auto) 0.2 (0.0-2.0) % Neut # (Auto) 8.21 H (1.40-7.00) K/uL Lymph # (Auto) 0.51 (0.50-3.50) K/uL [place] # (Auto) 1.04 H (0.00-1.00) K/uL Eos # (Auto) 0.12 (0.00-0.50) K/uL Baso # (Auto) 0.02 (0.00-0.20) K/uL Sodium 132 L (136-145) mmol/L Potassium 4.5 (3.5-5.1) mmol/L Chloride 92 L (98-107) mmol/L Carbon Dioxide 33.7 H (21.0-32.0) mmol/L BUN 49 H (7-18) mg/dL Creatinine 2.00 H (0.51-1.17) mg/dL Est Cr Clr Drug Dosing 36.50 mL/min Estimated GFR (MDRD) 33 mL/min Glucose 316 H (74-106) mg/dL POC Glucose 315 H* (65-110) mg/dl Calcium 8.8 (8.5-10.1) mg/dL Total Bilirubin 1.0 (0.2-1.0) mg/dL AST 27 (15-37) U/L ALT 24 (12-78) U/L Alkaline Phosphatase 83 (46-116) IU/L Troponin I 0.033 (0.000-0.056) ng/mL NT-Pro-B Natriuret Pep 3008 H (0-125) pg/mL Total Protein 7.7 (6.4-8.2) g/dL Albumin 3.3 L (3.4-5.0) g/dL Meds: Medications Generic Name Dose Route Start Last Admin Trade Name Freq PRN Reason Stop Dose Admin Sodium Chloride 10 ml 02/13/19 13:46 02/13/19 14:07 Saline Flush FLUSH 10 ml ASDIRECTED PRN Administration Keep Vein Open Discontinued Medications Generic Name Dose Route Start Last Admin Trade Name Freq PRN Reason Stop Dose Admin Furosemide 40 mg 02/13/19 13:46 02/13/19 14:06 Lasix IVPUSH 02/13/19 13:47 40 mg NOW ONE Administration Insulin Human Lispro 25 unit 02/13/19 14:28 02/13/19 15:22 Humalog SUBCUT 02/13/19 14:29 25 units NOW STA Administration Departure - Departure Time of Disposition: 14:42 Disposition: DC/Tfer to Acute Hospital 02 Condition: Fair Clinical Impression: Congestive heart failure Qualifiers: Heart failure type: combined systolic and diastolic Heart failure chronicity: acute on chronic Qualified Code(s): I50.43 - Acute on chronic combined systolic (congestive) and diastolic (congestive) heart failure - Discharge Information *PRESCRIPTION DRUG MONITORING PROGRAM REVIEWED*: No *COPY OF PRESCRIPTION DRUG MONITORING REPORT IN PATIENT LOLY: No Referrals: Manasa Chaudhari PA [Primary Care Provider] - Forms: ED Department Discharge Care Plan Goals: Patient evaluated at this time his BNP is elevated at 3008 he is on a left ventricular assist device his creatinine is elevated to 2.0 at this time I feel that he needs cardiology and possible nephrology to assist with his care - My Orders Last 24 Hours: My Active Orders 02/13/19 13:43 CXR [Chest 2V] [CR] Stat 02/13/19 13:44 Saline Lock Insert [OM.PC] Stat 02/13/19 13:46 EKG Documentation Completion [RC] ASDIRECTED Sodium Chloride 0.9% [Saline Flush] 10 ml FLUSH ASDIRECTED PRN 02/13/19 14:10 Cardiac Monitoring [RC] . DIRECTED 02/13/19 14:23 Accu Check [Blood Glucose Check, Bedside] [RC] ONETIME - Assessment/Plan Last 24 Hours: My Active Orders 02/13/19 13:43 CXR [Chest 2V] [CR] Stat 02/13/19 13:44 Saline Lock Insert [OM.PC] Stat 02/13/19 13:46 EKG Documentation Completion [RC] ASDIRECTED Sodium Chloride 0.9% [Saline Flush] 10 ml FLUSH ASDIRECTED PRN 02/13/19 14:10 Cardiac Monitoring [RC] . DIRECTED 02/13/19 14:23 Accu Check [Blood Glucose Check, Bedside] [RC] ONETIME
[2019-02-13] MEDS ORDERED: Insulin Lispro 100 Units/ML 3 ML Vial SUBCUT STA (14:28)
== END 2019-02-13 17:08 ==
LOC: LL.ED 13:25
DX: I13.11 Hypertensive heart and chronic kidney disease without heart failure, with stage 5 chronic kidney disease, or end stage renal disease (principal); I50.43 Acute on chronic combined systolic (congestive) and diastolic (congestive) heart failure; E11.22 Type 2 diabetes mellitus with diabetic chronic kidney disease; N18.5 Chronic kidney disease, stage 5; D63.1 Anemia in chronic kidney disease; E11.21 Type 2 diabetes mellitus with diabetic nephropathy; E11.40 Type 2 diabetes mellitus with diabetic neuropathy, unspecified; Z79.899 Other long term (current) drug therapy; Z79.4 Long term (current) use of insulin
CPT/HCPCS: 36415; 71046; 80053; 82962; 83880; 84484; 85025; 93005; 96372; 96374; 99285; J1815; J1940; 99284

== ENCOUNTER 2019-03-11 08:30 | Emergency (ER) | payer MEDICARE, BC ==
[2019-03-11 09:36] LABS: CHLORIDE,CL 88 mmol/L (98-107); SODIUM,NA 130 mmol/L (136-145)
[2019-03-11] MEDS ORDERED: Bacitracin Oint 1 GM U/D Packet TOP ONE (09:44)
[2019-03-11] MEDS ORDERED: Warfarin 5 MG Tab PO ONE (09:46)
--- NOTE | 2019-03-11 09:50 | EDM.PDOC ---
ED HPI GENERAL MEDICAL PROBLEM - General Chief Complaint: Lower Extremity Injury/Pain Stated Complaint: left knee pain Time Seen by Provider: 03/11/19 08:39 Source of Information: Reports: Patient History Limitations: Reports: No Limitations - History of Present Illness INITIAL COMMENTS - FREE TEXT/NARRATIVE: [place] after stepping into depression in ground and losing balance. Landed onto bent left knee. Had some minor abrasions and initially no significant discomfort in the knee. Started to develop pain yesterday and notes even more discomfort today. No swelling/redness/drainage/fevers. Is on Warfarin. Denies other injuries. Lives at [place] [facility]. - Related Data Allergies Allergy/AdvReac Type Severity Reaction Status Date / Time No Known Allergies Allergy Verified 02/13/19 15:17 Home Meds: Home Meds Acetaminophen 650 mg PO Q4HR PRN 12/01/18 [History] Amiodarone [Cordarone] 200 mg PO DAILY 12/01/18 [History] Amoxicillin 2,000 mg PO ASDIRECTED PRN 12/01/18 [History] Calcium Carbonate/Vitamin D3 [Calcium 600 + Vit D 400 Softgl] 1 tab PO DAILY [History] Dextrose [Glucose] 4 gm PO ASDIRECTED PRN 12/01/18 [History] Docusate Sodium [Colace] 100 mg PO BID 12/01/18 [History] Exenatide Microspheres [Bydureon Pen] 2 mg SQ WEEKLY 12/01/18 [History] Ferrous Sulfate 325 mg PO BID 12/01/18 [History] Finasteride 5 mg PO DAILY 12/01/18 [History] Fluticasone Propionate [Flonase Allergy Relief] 50 mcg NASBOTH 199912/01/18 [ History] Folic Acid 1 mg PO DAILY 12/01/18 [History] Gabapentin [Neurontin] 300 mg PO TID 12/01/18 [History] Insulin Aspart [NovoLOG] 25 unit SQ TID 12/01/18 [History] Insulin Glarg,Human.Rec.Analog [Lantus] 60 unit SUBCUT 0812/01/18 [History] Insulin Glarg,Human.Rec.Analog [Lantus] 64 units SUBCUT 199912/01/18 [History] Isosorbide Mononitrate [Isosorbide Mononitrate ER] 120 mg PO DAILY 12/01/18 [ History] Levothyroxine Sodium [Synthroid] 75 mcg PO DAILY 12/01/18 [History] Melatonin 5 mg PO BEDTIME 12/01/18 [History] Pantoprazole [ProTONIX] 40 mg PO BID 12/01/18 [History] Spironolactone [Aldactone] 25 mg PO BID 12/01/18 [History] Torsemide 100 mg PO BID 12/01/18 [History] Venlafaxine HCl [Venlafaxine ER] 75 mg PO DAILY 12/01/18 [History] Venlafaxine HCl [Venlafaxine ER] 150 mg PO DAILY 12/01/18 [History] Vitamin B Complex 1 cap PO DAILY 12/01/18 [History] Warfarin [Coumadin] 2.5 mg PO ASDIRECTED 12/01/18 [History] clonazePAM [Clonazepam] 1 mg PO DAILY@199912/01/18 [History] hydrALAZINE HCl [Hydralazine HCl] 100 mg PO QID 12/01/18 [History] metOLazone [Metolazone] 2.5 mg PO ASDIRECTED 12/01/18 [History] rOPINIRole [Requip] 1 mg PO QID 12/01/18 [History] Ascorbic Acid [Vitamin C] 1,000 mg PO 0800 02/13/19 [History] Cholecalciferol (Vitamin D3) [Vitamin D3] 2,000 unit PO DAILY 02/13/19 [History] Potassium Chloride [Klor-Con M20] 40 meq PO TID 02/13/19 [History] Potassium Chloride [Klor-Con M20] 40 meq PO WEEKLY 02/13/19 [History] Pravastatin [Pravachol] 40 mg PO 199902/13/19 [History] Psyllium Husk [Metamucil] 2 tsp PO DAILY 02/13/19 [History] metOLazone [Metolazone] 2.5 tab PO ASDIRECTED 02/13/19 [History] Warfarin [Coumadin] 3 mg PO TuTh@1600 03/11/19 [History] Past Medical History HEENT History: Reports: Cataract, Glaucoma, Hard of Hearing, Impaired Vision, Other (See Below) Other HEENT History: Bilateral presbycusis with bilateral hearing aid therapy. Patient wears glasses. No diabetic retinopathy by patient history. Cardiovascular History: Reports: Automatic Implantable Cardioverter Defibrillators, Blood Clots/VTE/DVT, CAD, Cardiomyopathy, Heart Failure, High Cholesterol, Hypertension, [place], Pacemaker, Other (See Below) Other Cardiovascular History: Coronary artery disease with history of multiple previous nonsymptomatic MIs since his 50s with no previous PTCA/stents or bypass surgery. Chronic CHF which does require LVAD. In addition note history of pacemaker/AICD. DVT of the foot/leg at time of LVAD placement in 2008 with repeat DVT of the leg with history of secondary PE at placement of AICD in early November 2018. Recurrent syncope secondary to dehydration from diuresis therapy. History of hypertension with current chronic hypotension secondary to his heart disease/cardiomyopathy. Mixed hyperlipidemia. Respiratory History: Reports: Bronchitis, Recurrent, COPD, Intubation, Previous , PE, Pneumonia, Recurrent, Sleep Apnea, SOB, Other (See Below) Other Respiratory History: He does not use a CPAP. Gastrointestinal History: Reports: Chronic Constipation, Colon Polyp, GERD, Other (See Below) Other Gastrointestinal History: Excision of 3 unknown type of polyps in the early . Genitourinary History: Reports: BPH, Chronic Renal Insuffiency, Diabetic Nephropathy, Prostate Disorder, Retention, Urinary, Other (See Below) Other Genitourinary History: Stage IV chronic renal insufficiency/diabetic nephropathy. Musculoskeletal History: Reports: Arthritis, Back Pain, Chronic, Fracture, Gout , Neck Pain, Chronic, Osteoarthritis, Other (See Below) Other Musculoskeletal History: Midshaft tibial fibular fracture in the early 1999sside unknown with no surgery Neurological History: Reports: Neuropathy, Diabetic, Neuropathy, Peripheral Psychiatric History: Reports: Addiction, Anxiety, Depression, Other (See Below) Other Psychiatric History: Alcohol abuse for about 23 years as below. Endocrine/Metabolic History: Reports: Diabetes, Type II, Hypothyroidism, IDDM, Obesity/BMI 30+ Hematologic History: Reports: Anemia, Blood Transfusion(s), Iron Deficiency Immunologic History: Reports: None Oncologic (Cancer) History: Reports: Prostate, Other (See Below) Other Oncologic History: Radiation treatment for prostate cancer 2008 with no TURP or prostatectomy for Dermatologic History: Reports: Venous Stasis Dermatitis - Infectious Disease History Infectious Disease History: Reports: Chicken Pox, Measles, Mumps - Past Surgical History Head Surgeries/Procedures: Reports: None HEENT Surgical History: Reports: Cataract Surgery, Oral Surgery, Other (See Below) Other HEENT Surgeries/Procedures: Bilateral cataract surgery in about 2014. Cardiovascular Surgical History: Reports: AICD, Pacer, Percutaneous Transluminal Angioplasty, Other (See Below) Other Cardiovascular Surgeries/Procedures: AICD/pacemaker placement 2 with last placement in early November 2014. LVAD 2 initially in 2008 and then in 2015. Respiratory Surgical History: Reports: None GI Surgical History: Reports: Appendectomy, Colonoscopy, EGD, Polypectomy, Other (See Below) Other GI Surgeries/Procedures: Appendectomy at about age 8. Colonoscopy with concomitant polypectomy 3 in the early . Previous EGD? Male Surgical History: Reports: Circumcision, Prostate Biopsy Endocrine Surgical History: Reports: None Neurological Surgical History: Reports: None Musculoskeletal Surgical History: Reports: None Oncologic Surgical History: Reports: Lumpectomy, Other (See Below) Other Oncologic Surgeries/Procedures: Apparent lumpectomy of prostate cancer with subsequent radiation therapy? Dermatological Surgical History: Reports: None Social & Family History - Family History Cardiac: Reports: CAD, [place], Other (See Below) Other Cardiac Family History: Father with unknown type of heart murmur requiring valve replacement. Mother with unknown type of heart disease. Endocrine/Metabolic: Reports: Diabetes, type II, IDDM, Other (See Below) Other Endocrine/Metabolic Family History: History with AODM. Mother with IDDM. - Caffeine Use Caffeine Use: Reports: Coffee, Soda - Sexual History Sexual History: Reports: None - Living Situation & Occupation Living situation: Reports: Extended Care Facility ([facility]) Occupation: Disabled (In his early 50s secondary to his heart disease.) Review of Systems - Review of Systems Review Of Systems: ROS reveals no pertinent complaints other than HPI. ED EXAM, GENERAL - Physical Exam Exam: See Below Exam Limited By: No Limitations General Appearance: Alert, No Apparent Distress, Obese Eye Exam: Bilateral Eye: EOMI Nose: No: Nasal Deformity, Nasal Swelling, Nasal Drainage Throat/Mouth: Normal Lips, Normal Voice, No Airway Compromise Head: Atraumatic, Normocephalic Neck: Supple Respiratory/Chest: No Respiratory Distress Extremities: Other (Left knee shows scattered healing superficial abrasions. No increased warmth noted. No redness. No obvious swelling of left knee. No effusion noted. No crepitus with extension/flexion. Ligaments appear to be intact/no increased laxity noted. Some peripatellar tenderness with palpation as well as discomfort around medial joint line and MCL. No obvious meniscal pain. Brisk cap refill. Unremarkable exam proximal and distal to knee. No posterior tenderness. ) Course - Vital Signs Last Recorded V/S: Last Vital Signs Temp 36.3 C 03/11/19 08:49 Pulse 80 03/11/19 08:49 Resp 18 03/11/19 08:49 BP 107/83 03/11/19 08:49 Pulse Ox 95 03/11/19 08:49 - Orders/Labs/Meds Orders: Active Orders 24 hr Category Date Time Status Knee 3V Lt [CR] Stat Exams 03/11/19 08:39 Ordered Labs: Laboratory Tests 03/11/19 03/11/19 03/11/19 Range/Units 09:20 09:20 09:20 WBC 9.9 (4.0-10.2) K/uL RBC 3.40 L (4.33-5.41) M/uL Hgb 12.0 L (13.1-16.8) g/dL Hct 35.8 L (39.0-49.0) % MCV 105.3 H (84.0-98.0) fL MCH 35.3 H (28.2-33.3) pg MCHC 33.5 (31.7-36.0) g/dL RDW 19.0 H (11.2-14.1) % Plt Count 166 (150-350) K/uL Neut % (Auto) 83.5 H (45.0-80.0) % Lymph % (Auto) 5.5 L (10.0-50.0) % Nobles % (Auto) 9.0 (2.0-14.0) % Eos % (Auto) 1.8 (0.0-5.0) % Baso % (Auto) 0.2 (0.0-2.0) % Neut # (Auto) 8.24 H (1.40-7.00) K/uL Lymph # (Auto) 0.54 (0.50-3.50) K/uL Nobles # (Auto) 0.89 (0.00-1.00) K/uL Eos # (Auto) 0.18 (0.00-0.50) K/uL Baso # (Auto) 0.02 (0.00-0.20) K/uL PT 19.9 H (9.5-12.0) SEC INR 1.8 Sodium 130 L (136-145) mmol/L Potassium 3.7 (3.5-5.1) mmol/L Chloride 88 L (98-107) mmol/L Carbon Dioxide 31.3 (21.0-32.0) mmol/L BUN 77 H (7-18) mg/dL Creatinine 2.58 H (0.51-1.17) mg/dL Est Cr Clr Drug Dosing TNP Estimated GFR (MDRD) 25 mL/min Glucose 347 H (74-106) mg/dL Calcium 8.7 (8.5-10.1) mg/dL Total Bilirubin 0.7 (0.2-1.0) mg/dL AST 32 (15-37) U/L ALT 23 (12-78) U/L Alkaline Phosphatase 83 (46-116) IU/L Total Protein 8.2 (6.4-8.2) g/dL Albumin 3.6 (3.4-5.0) g/dL Meds: Medications Discontinued Medications Generic Name Dose Route Start Last Admin Trade Name Freq PRN Reason Stop Dose Admin Bacitracin 1 dose 03/11/19 09:44 03/11/19 10:07 Bacitracin Oint 1 Gm TOP 03/11/19 09:45 1 dose ONETIME ONE Administration Warfarin Sodium 5 mg 03/11/19 09:46 03/11/19 10:07 Coumadin PO 03/11/19 09:47 5 mg ONETIME ONE Administration - Re-Assessments/Exams Free Text/Narrative Re-Assessment/Exam: 03/11/19 09:58 No obvious fracture on Xray. Patient observed to be able to use both legs to push himself up and onto the Radiology table without obvious signs of discomfort. Radiology to review film. INR subtherapeutic, additional 5mg Warfarin given. Patient declined pain medication. [facility] but says [facility] does not help much. Suspect contusion of left knee along with internal bruising (Warfarin). At this time no sign of infection is noted. Ligaments appear intact. Recommend conservative treatment/rest/ice. Follow up if pain has not significantly improved within 4-5 days. Patient also noted to have decreased Na, but this is not new. Recommend follow up call with primary on Wednesday to see if there is option of adding NaCl to med regimen or at least arrange follow up labs for this and for INR. Departure - Departure Time of Disposition: : Disposition: Home, Self-Care 01 Condition: Good Clinical Impression: Contusion of left knee Qualifiers: Encounter type: initial encounter Qualified Code(s): S80.02XA - Contusion of left knee, initial encounter - Discharge Information *PRESCRIPTION DRUG MONITORING PROGRAM REVIEWED*: Not Applicable *COPY OF PRESCRIPTION DRUG MONITORING REPORT IN PATIENT LOLY: Not Applicable Instructions: Knee Pain, Adult, Contusion Referrals: Sheets-Kathie Reid MD [Primary Care Provider] - Forms: ED Department Discharge Additional Instructions: Observe knee for the next few days. If any signs of redness/drainage/streaking of redness/increased swelling is noted have patent rechecked. No evidence of infection noted at this time. INR subtherapeutic. Single 5mg dose Warfarin given in ER. Have INR rechecked Wednesday. Sodium/Cl decreased today. Discuss with primary provider next week if they wish to consider daily NaCl supplementation as pt usually runs low when seen here. Rest/ice recommended for knee. If pain has not improved within 4-5 days, have patient get rechecked. Follow up otherwise as needed if there are problems. - My Orders Last 24 Hours: My Active Orders 03/11/19 08:39 Knee 3V Lt [CR] Stat - Assessment/Plan Last 24 Hours: My Active Orders 03/11/19 08:39 Knee 3V Lt [CR] Stat
== END 2019-03-11 11:00 | disposition home or self-care (01) ==
LOC: LL.ED 08:30
DX: S80.02XA Contusion of left knee, initial encounter (principal); I13.0 Hypertensive heart and chronic kidney disease with heart failure and stage 1 through stage 4 chronic kidney disease, or unspecified chronic kidney disease; E11.22 Type 2 diabetes mellitus with diabetic chronic kidney disease; N18.9 Chronic kidney disease, unspecified; I50.9 Heart failure, unspecified; D63.1 Anemia in chronic kidney disease; E11.42 Type 2 diabetes mellitus with diabetic polyneuropathy; E78.00 Pure hypercholesterolemia, unspecified; I25.2 Old myocardial infarction; E03.9 Hypothyroidism, unspecified; J44.9 Chronic obstructive pulmonary disease, unspecified; F41.9 Anxiety disorder, unspecified; F32.9 Major depressive disorder, single episode, unspecified; K21.9 Gastro-esophageal reflux disease without esophagitis; Z79.4 Long term (current) use of insulin; Z79.899 Other long term (current) drug therapy; W19.XXXA Unspecified fall, initial encounter
CPT/HCPCS: 36415; 73562; 80053; 85025; 85610; 99283; A9270